=== PATIENT | male | born 1960 | race Caucasian/White ===

== ENCOUNTER 2018-06-03 13:55 | Day surgery (SDC) | payer OTHER ==
[2018-06-03] MEDS ORDERED: MIDAZOLAM 1 MG/ML 2 ML INJ ×2 (15:55)
[2018-06-03] MEDS ORDERED: FENTAnyl 50 MCG/ML VIAL (15:55)
== END 2018-06-03 16:03 | disposition home or self-care (01) ==
LOC: GIL 13:55
DX: R19.4 Change in bowel habit (principal)
CPT/HCPCS: 45378